=== PATIENT | female | born 1950 | race Caucasian/White ===

== ENCOUNTER 2017-10-13 10:57 | Emergency (ER) | payer MEDICARE, BC ==
[~2017-10-13] VITALS: Ht 160 cm; Wt 80.0 kg
[~2017-10-13 10:57] MED LIST: ASPIRIN EC81 MG PO; CRESTOR20 MG PO; LEXAPRO10 MG PO; PLAVIX75 MG PO; TRICOR145 MG PO; ZETIA10 MG PO
[2017-10-13 12:14] LABS: HEMATOCRIT 34.4 % (37.0-47.0); HEMOGLOBIN 11.5 g/dl (12.0-16.0); IMMATURE GRANULOCYTES 0.2 % (0.0-1.0); MEAN CELL VOLUME 91.7 fL CALC (80.0-100.0); MEAN CORPUSCULAR HGB 30.7 pG CALC (26.0-32.0); MEAN CORPUSCULAR HGB CONC 33.4 g/L CALC (32.0-36.0); NEUT# 2.23 thou/uL (2.00-7.15); RED BLOOD COUNT 3.75 mill/uL (4.20-5.60); RED CELL DISTRI WIDTH 12.3 % (11.5-15.5)
[2017-10-13 12:20] LABS: ALBUMIN 4.4 g/dL (3.2-5.0); ALKALINE PHOSPHATASE 46 u/l (38-126); AMYLASE 68 u/l (30-110); ANION GAP 15 (6-22 (CALC)); BILIRUBIN, TOTAL 0.4 mg/dL (0.0-1.4); BUN 21 mg/dL (8-23); BUN/CREATININE RATIO 20 (12-20 (CALC)); CALCIUM 9.7 mg/dL (8.4-10.2); CARBON DIOXIDE 27 mmol/l (22-30); CHLORIDE 108 mmol/l (95-108); CREATININE 1.1 mg/dL (0.5-1.0); GFR 49 ML/MIN (>=60 (CALC)); GFR FOR AFR.AMER. 60 ML/MIN (>=60 (CALC)); GLUCOSE 90 mg/dL (82-115); LIPASE 151 u/l (23-300); POTASSIUM 4.5 mmol/l (3.5-5.1); SGOT/AST 44 u/l (9-36); SGPT/ALT 31 u/l (11-66); SODIUM 145 mmol/l (137-146); TOTAL PROTEIN 6.8 g/dL (6.3-8.2)
[2017-10-13 12:33] LABS: MYOGLOBIN 64 ng/mL (0 - 62)
[2017-10-13] MEDS ORDERED: GABAPENTIN100 MG PO (13:37)
[2017-10-13] MEDS ORDERED: OMEPRAZOLE10 MG PO (13:37)
[2017-10-13] MEDS ORDERED: [UNRECOGNIZED DRUG - OTHER] PO (13:38)
[2017-10-13 17:07] VITALS: BP 100/57
== END 2017-10-13 17:10 | disposition home or self-care (01) ==
LOC: ED 10:57
PROVIDERS: Emergency Medicine
DX: T44.7X1A Poisoning by beta-adrenoreceptor antagonists, accidental (unintentional), initial encounter (principal); T44.6X1A Poisoning by alpha-adrenoreceptor antagonists, accidental (unintentional), initial encounter; T40.2X1A Poisoning by other opioids, accidental (unintentional), initial encounter; R42 Dizziness and giddiness; R11.0 Nausea; E78.5 Hyperlipidemia, unspecified; F32.9 Major depressive disorder, single episode, unspecified; Y92.009 Unspecified place in unspecified non-institutional (private) residence as the place of occurrence of the external cause; Z85.038 Personal history of other malignant neoplasm of large intestine; Z86.73 Personal history of transient ischemic attack (TIA), and cerebral infarction without residual deficits

== ENCOUNTER 2021-11-13 10:17 | Emergency (ER) | payer MEDICARE, BC ==
[~2021-11-13] VITALS: Ht 160 cm; Wt 80.0 kg
[~2021-11-13 10:17] MED LIST changes: +GABAPENTIN100 MG PO; -LEXAPRO10 MG PO; +LEXAPRO20 MG PO; +OMEPRAZOLE10 MG PO; +[UNRECOGNIZED DRUG - OTHER] PO
[2021-11-13] MEDS ORDERED: OMEPRAZOLE DR20 MG PO (10:45)
[2021-11-13] MEDS ORDERED: FOLIC ACI1 PO (10:46)
[2021-11-13] MEDS ORDERED: CRESTOR20 MG PO (10:47)
[2021-11-13] MEDS ORDERED: FENOFIBRATE145 MG PO (10:47)
[2021-11-13] MEDS ORDERED: ASPIRIN 81 LOW81 MG PO (10:47)
[2021-11-13] MEDS ORDERED: GARLIC1000 MG PO (10:48)
[2021-11-13 12:00] LABS: HEMOGLOBIN 11.1 g/dl (12.0-16.0); IMMATURE GRANULOCYTES 0.1 % (0.0-5.0); MEAN CELL VOLUME 93.3 fL CALC (80.0-100.0); MEAN CORPUSCULAR HGB 29.6 pG CALC (26.0-32.0); MEAN CORPUSCULAR HGB CONC 31.7 g/dL CAL (32.0-36.0); NEUT# 5.34 thou/uL (2.00-7.15); RED BLOOD COUNT 3.75 mill/uL (4.20-5.60)
[2021-11-13 12:03] LABS: URINE BILIRUBIN - DIPSTICK NEGATIVE (NEGATIVE); URINE BLOOD DIPSTICK SMALL (NEGATIVE); URINE COLOR YELLOW; URINE GLUCOSE - DIPSTICK NEGATIVE (NEGATIVE); URINE KETONE NEGATIVE (NEGATIVE); URINE LEUK ESTERASE TRACE (NEGATIVE); URINE PH 6.5 (4.5-8.0); URINE PROTEIN - DIPSTICK NEGATIVE (NEG-TRACE); URINE UROBILINOGEN - DIPSTICK 0.2 E.U./dL (0.2)
[2021-11-13 12:04] LABS: URINE NITRITE - DIPSTICK NEGATIVE (Negative)
[2021-11-13 12:12] LABS: URINE BACTERIA MANY hpf; URINE SQUAMOUS EPITHELIAL CELL FEW EPI/hpf (0-FEW)
[2021-11-13 12:17] LABS: ALBUMIN 3.6 g/dL (3.2-5.0); ALKALINE PHOSPHATASE 54 u/l (38-126); ANION GAP 9 (6-22 (CALC)); BILIRUBIN, TOTAL 0.3 mg/dL (0.0-1.4); BUN 17 mg/dL (8-23); BUN/CREATININE RATIO 20 (12-20 (CALC)); CARBON DIOXIDE 29 mmol/l (22-30); CHLORIDE 107 mmol/l (95-108); CREATININE 0.9 mg/dL (0.5-1.0); GFR > 60 ML/MIN (>=60 (CALC)); GFR FOR AFR.AMER. > 60 ML/MIN (>=60 (CALC)); POTASSIUM 4.3 mmol/l (3.5-5.1); SGOT/AST 29 u/l (9-36); SODIUM 140 mmol/l (137-146); TOTAL PROTEIN 6.5 g/dL (6.3-8.2)
[2021-11-13] MEDS ORDERED: KEFLEX500 MG PO (14:19)
[2021-11-13] MEDS ORDERED: FLONASE AL50 MCG/ACT (14:19)
[2021-11-13] MEDS ORDERED: LORTAB 1010 MG PO (14:48)
[2021-11-13 14:51] VITALS: BP 155/67
== END 2021-11-13 14:58 | disposition home or self-care (01) ==
LOC: ED 10:17
PROVIDERS: Emergency Medicine
DX: J32.0 Chronic maxillary sinusitis (principal); E78.00 Pure hypercholesterolemia, unspecified; R82.71 Bacteriuria

== ENCOUNTER 2021-11-28 10:38 | Emergency (ER) | payer MEDICARE, BC ==
[~2021-11-28] VITALS: Ht 160 cm; Wt 84.1 kg
[~2021-11-28 10:38] MED LIST changes: +ASPIRIN 81 LOW81 MG PO; +FENOFIBRATE145 MG PO; +FLONASE AL50 MCG/ACT; +FOLIC ACI1 PO; +GARLIC1000 MG PO; +KEFLEX500 MG PO; +LORTAB 1010 MG PO; +OMEPRAZOLE DR20 MG PO
[2021-11-28] MEDS ORDERED: ZETIA10 MG PO (11:21)
[2021-11-28] MEDS ORDERED: AMOX/K CLAV875 M1 PO (12:10)
[2021-11-28] MEDS ORDERED: HYDROCO/APAP1 TA9 PO (12:10)
[2021-11-28 12:40] VITALS: BP 146/75
== END 2021-11-28 12:40 | disposition home or self-care (01) ==
LOC: ED 10:38
DX: J32.0 Chronic maxillary sinusitis (principal); E78.00 Pure hypercholesterolemia, unspecified; G62.9 Polyneuropathy, unspecified; Z86.73 Personal history of transient ischemic attack (TIA), and cerebral infarction without residual deficits; Z85.038 Personal history of other malignant neoplasm of large intestine; Z90.49 Acquired absence of other specified parts of digestive tract

== ENCOUNTER 2024-10-02 10:38 | Emergency (ER) | payer MEDICARE, BC ==
[2024-10-02] VITALS (10 sets, daily range): BP systolic 133–175; BP diastolic 71–80
[~2024-10-02] VITALS: Ht 160 cm; Wt 76.0 kg
[~2024-10-02 10:38] MED LIST changes: +AMOX/K CLAV875 M1 PO; +HYDROCO/APAP1 TA9 PO
[2024-10-02 11:21] LABS: BASO% 1.3 % (0-3); EOS% 3.1 % (0-8); IMMATURE GRANULOCYTES 0.2 % (0.0-5.0); LYMPH% 36.9 % (15-41); MEAN CORPUSCULAR HGB CONC 32.3 g/dL CAL (32.0-36.0); MONO% 7.7 % (2-13); NEUT# 2.29 thou/uL (2.00-7.15); NEUT% 50.8 % (42-76); RED BLOOD COUNT 4.46 mill/uL (4.20-5.60); RED CELL DISTRI WIDTH 12.3 % (11.5-15.5)
[2024-10-02 11:36] LABS: ALBUMIN 4.2 g/dL (3.2-5.0); CREATININE 0.7 mg/dL (0.5-1.0)
[2024-10-02 11:44] LABS: BILIRUBIN, TOTAL 0.7 mg/dL (0.02-1.3); HEMATOCRIT 41.5 % (37.0-47.0); HEMOGLOBIN 13.4 g/dl (12.0-16.0)
== END 2024-10-02 13:11 | disposition home or self-care (01) ==
LOC: ED 10:38
PROVIDERS: Family Medicine
DX: I10 Essential (primary) hypertension (principal); R74.8 Abnormal levels of other serum enzymes; G62.9 Polyneuropathy, unspecified; E78.5 Hyperlipidemia, unspecified; Z86.73 Personal history of transient ischemic attack (TIA), and cerebral infarction without residual deficits